=== PATIENT | female | born 1955 | race Caucasian/White ===

== ENCOUNTER 2025-10-07 09:42 | Outpatient (AMB) | payer MEDICARE, SELFPAY ==
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
[2025-10-07 10:04] VITALS: BP 155/74; PULSE 75; RESP 16; TEMP 36.6; O2SAT 99; BMI 23.3
== END 2025-10-07 10:42 | disposition home or self-care (01) ==
PROVIDERS: PCP Student in an Organized Health Care Education/Training Program; Visit Provider Student in an Organized Health Care Education/Training Program
DX: E11.9 Type 2 diabetes mellitus without complications (principal); J45.20 Mild intermittent asthma, uncomplicated; H54.8 Legal blindness, as defined in USA; R41.89 Other symptoms and signs involving cognitive functions and awareness; Z59.41 Food insecurity; Z59.869 Financial insecurity, unspecified; Z59.82 Transportation insecurity

== ENCOUNTER 2025-10-07 09:42 | Outpatient (REF) | payer MEDICARE, SELFPAY ==
[2025-10-07 13:17] LABS: Appearance Urine Clear; Glucose Urine UA >=1000 mg/dL (Negative); PH 5.5 (5.0-9.0); Specific Gravity - Urine 1.025 (1.005-1.025); UMIC TRIGGER UACC YES
[2025-10-07 13:18] LABS: MANUAL DIFF FLAG NO
[2025-10-07 13:36] LABS: Hematocrit 40.3 % (37.0-47.0); Hemoglobin 13.5 g/dl (12.0-16.0); Imm Gran Abs Auto 0.01 X10*3/uL (0.00-0.03); Imm Gran Pct Auto 0.1 % (0.0-0.4); Lymphocytes Absolute Auto 1.6 X10*3/uL (1.2-4.9); Mean Corpuscular HGB Conc 33.5 g/dl (31.0-35.0); Mean Corpuscular Hemoglobin 30.7 pg (27.0-33.0); Mean Corpuscular Volume 91.6 fL (80.0-98.0); NRBC Abs Auto 0.000 X10*3/uL (0.0-0.012); NRBC Pct Auto 0.0 /100WBC (0.0-0.2); Platelet Count 172 X10*3/uL (160-400); Red Blood Count 4.40 X10*6/uL (4.20-5.50); White Blood Count 7.2 X10*3/uL (4.8-10.8)
[2025-10-07 14:02] LABS: Microalbum/Creatinine Ratio Ur 29.6 ug/mg cr (<30)
[2025-10-07 18:41] LABS: Alanine Aminotransferase 50 U/L (0-31); Albumin Level 3.5 g/dL (3.5-5.0); Alkaline Phosphatase 176 U/L (39-117); Anion Gap 10 (12-20); Aspartate Amino Transferase 67 U/L (5-31); Blood Urea Nitrogen 22 mg/dL (9-16); Calcium 8.9 mg/dL (8.4-10.2); Carbon Dioxide 27 mmol/L (22-29); Chloride 104 mmol/L (96-108); Cholesterol 171 mg/dL (<200); Estimated Glomerular Filt Rate > 60; HDL Cholesterol 47 mg/dL (>40); Magnesium 1.8 mg/dL (1.6-2.6); Potassium 3.9 mmol/L (3.3-5.1); Sodium 137 mmol/L (135-145); Total Protein 7.8 g/dL (6.5-8.0); Triglycerides 59 mg/dL (<150)
[2025-10-07 18:48] LABS: Folate 11.8 ng/mL (> or = 4.0); Vitamin B12 604 pg/mL (200-900)
[2025-10-09 03:51] LABS: Syphilis Screen Nonreactive (Nonreactive)
[2025-10-09 04:35] LABS: HBS Num1 0.00 mIU/mL (0-7.99); HBsAGNum1 0.44 S/CO (0.00-0.99); HIV Num 1 0.06 S/CO (0.00-0.99); Hepatitis B Surface Antigen Negative (Negative); ~HepC Num1 0.10 S/CO (0.00-0.79); ~Hepatitis B Surface Antibody NONREACTIVE (Nonreactive); ~Hepatitis C Antibody Nonreactive (Nonreactive)
[2025-10-13 14:23] LABS: VITAMIN D (1,25 OH) D3 20 pg/mL; Vit D (1,25-Dihydroxy) Total 20 pg/mL (18-72); Vitamin D (1,25 OH) D2 <8 pg/mL
== END 2025-10-07 09:43 | disposition home or self-care (01) ==
LOC: HO.HKASLDS 09:42
PROVIDERS: PCP Student in an Organized Health Care Education/Training Program; Visit Provider Student in an Organized Health Care Education/Training Program
DX: E11.9 Type 2 diabetes mellitus without complications (principal); J45.909 Unspecified asthma, uncomplicated; H54.8 Legal blindness, as defined in USA; J45.20 Mild intermittent asthma, uncomplicated; R41.89 Other symptoms and signs involving cognitive functions and awareness; Z59.41 Food insecurity; Z59.869 Financial insecurity, unspecified; Z59.82 Transportation insecurity
CPT/HCPCS: 36415; 80053; 80061; 81001; 82043; 82570; 82607; 82652; 82746; 83036; 83735; 84443; 85025; 86706; 86780; 86803; 87340; 87389; 96127; 99202

== ENCOUNTER 2025-11-02 14:58 | Outpatient (AMB) | payer MEDICARE, SELFPAY ==
--- NOTE | 2025-11-02 15:29 | MHC.PC.OV ---
Vital Signs 11/02/25 15:33 Height 5 ft 1.81 in Weight 142 lb BMI 26.1 BP 124/63 Blood Pressure Location Rt brachial Position Sitting Respiration 16 Pulse 74 Pulse Source Pulse Oximeter Temp 98.1 F Temp Source Oral Pulse Oximetry (%) 99 Oxygen Delivery Method Room Air Intake Visit Reasons: 2 wk lab review Intake Note: lab review Guest Service Manager Required: No Allergies acetaminophen (From Percocet) Allergy (Intermediate, Verified 11/02/25 15:32) Hives oxycodone (From Percocet) Allergy (Intermediate, Verified 11/02/25 15:32) Hives Tobacco use date assessed: 10/07/25 Fall risk assessment: 1 Fall in past year Last assessed Fall Risk: 11/02/25 Dental Screening Dental Screen Date: 10/07/25 HPI HPI Comments History of Present Illness Details History of Present Illness The patient is a 70 year old individual presenting for follow-up for chronic disease management, review of lab results, and obtaining specialist referrals. Type 2 diabetes mellitus: The patient has a history of type 2 diabetes and previously took metformin a long time ago but is not currently on any medication for it, as the patient had not seen a doctor recently. The patient's Hemoglobin A1c is 6.2, which is in the prediabetes range; however, the patient is considered a diabetic who is currently diet-controlled. Dyslipidemia: The patient has a history of dyslipidemia. Recent lab results show an LDL cholesterol level of 113. Visual Impairment: An inquiry was made by Ann-Marie regarding whether the patient had a clinical diagnosis of blindness. Past medical records obtained from a previous physician do not contain any information about legal blindness. An evaluation from [facility] [place] [facility] was previously mentioned. Forgetfulness: The patient is experiencing forgetfulness, prompting a request for a neurology evaluation. The patient's mother had dementia, and a family member mentioned a prior diagnosis of early Alzheimer's, though no formal testing documentation is available. Medications: - Statin medication for cholesterol Social History: - The patient requires a handicap placard. - The patient requires durable medical equipment, specifically a shower chair, for home safety. - A family member is involved in the patient's care and accompanied the patient to the visit. Family History: - Mother had a history of dementia. Diagnostic Results: - Complete Blood Count: White blood cells, red blood cells, hemoglobin, hematocrit, and platelets are normal. - Comprehensive Metabolic Panel: Sodium, potassium, and kidney function are normal. - Hemoglobin A1c: 6.2%. - Liver Function Tests: AST, ALT, and alkaline phosphatase are elevated. - Lipid Panel: LDL cholesterol is 113 mg/dL. - Vitamin B12: 604 pg/mL. - Vitamin D: 20 ng/mL. - Folate: Normal. - Thyroid function: Normal. - Urinalysis: Positive for microprotein. - Infectious Disease Panel: Negative for syphilis, HIV, Hepatitis B, and Hepatitis C. Past Medical History - Hypertension - Type 2 diabetes mellitus - Dyslipidemia - Anxiety - History of asthma - Chronic obstructive pulmonary disease (COPD) - Migraines - Possible early Alzheimer's disease Health Maintenance - Discussed influenza and pneumococcal vaccinations, which the patient declined. - Fill out paperwork for a handicap placard. - Place an order for a shower chair for home safety. FOR[facility] Medical History (Updated 11/05/25 @ 12:31 by Miguel Angel Bingham MD) Visual impairment Dyslipidemia Forgetfulness Dementia Elevated liver enzymes Cognitive decline Legally blind Asthma, mild intermittent Transportation insecurity Financial insecurity Food insecurity Screening for diabetic retinopathy Diabetes type 2 Family History Father High blood pressure Cancer Mother Alzheimer disease Dementia Social History (Updated 11/02/25 @ 15:32 by Derek Cerrato CMA) Housing: House Alcohol intake: never Patient Tobacco Use Status: Never used Tobacco e-Cigarette/Vaping Use: Never Used service: No Current occupational status: retired Cognitive needs: Yes Hearing needs: No Vision needs: Yes (rx glasses) Questionnaire Thrive Questionnaire Date Thrive assessed: 10/07/25 I am a: Parent/Caregiver What is your living situation today?: I have a steady place to live Within the past 12 months, did the food you bought not last and you didn't have the money to get more?: Often true Within the past 12 months, did you worry whether your food would run out before you got money to buy more?: Often true Do you have trouble paying for medicines?: No Do you have trouble getting transportation to medical appointments?: Yes Do you have trouble paying your heating and electricity bill?: Yes Do you have trouble taking care of your child, family member or friend?: No Are you currently unemployed and looking for a job?: Yes Are you interested in more education?: No Currently or been in a relationship where the following occur: I choose not to answer THRIVE Score: 4 Review of Systems Narrative Review of Systems - Neurological: Reports a history of migraines. - Reports forgetfulness. - Eyes: Reports significant visual impairment requiring evaluation. - Cardiovascular: Denies a history of hypertension issues. 10-point ROS reviewed and negative except as noted in HPI Physical exam (Primary Care) Vital Signs: Last Vital Signs Temp 98.1 F 11/02/25 15:33 Pulse 74 11/02/25 15:33 Resp 16 11/02/25 15:33 BP 124/63 11/02/25 15:33 Pulse Ox 99 11/02/25 15:33 Oxygen Delivery Method Room Air 11/02/25 15:33 BMI result Body Mass Index 26.1 Tobacco/Smoking Status: Tobacco use Status Tobacco use date assessed 10/07/25 11/02/25 15:30 Patient Tobacco Use Status Never used Tobacco 11/02/25 15:32 e-Cigarette/Vaping Use Never Used 11/02/25 15:35 Thrive Assessment: Date of Thrive Assessment Date Thrive assessed 10/07/25 11/02/25 15:30 Currently or been in a relationship where the following occur: I choose not to answer Narrative Physical Exam General: Well-appearing, in no acute distress. Vital signs: Within normal limits. HEENT: Normocephalic, atraumatic. PERRLA, EOMI. Conjunctiva clear, sclera anicteric. Oropharynx clear, mucous membranes moist. TMs intact bilaterally. Neck: Supple, no lymphadenopathy, no thyromegaly, no JVD or carotid bruits. Cardiovascular: RRR, normal S1/S2, no murmurs, rubs, or gallops. Peripheral pulses 2+ and symmetric. No edema. Respiratory: Lungs clear to auscultation bilaterally, no wheezes, rales, or rhonchi. Normal effort. Abdomen: Soft, non-tender, non-distended. Normoactive bowel sounds. No hepatosplenomegaly, no masses. MSK: Full range of motion, no joint swelling or deformity. Normal gait. Skin: Warm, dry, intact. No rashes, lesions, or pallor. Neuro: Alert and oriented x3. Cranial nerves II-XII intact. Strength 5/5 throughout. Sensation intact. Reflexes 2+ symmetric. Normal coordination and gait. Psych: Appropriate mood and affect. Normal judgment and insight. Coding Level of Care Code Est Pt Level 3 (66450) Diagnoses Diabetes type 2 E11.9 Dyslipidemia E78.5 Screening for diabetic retinopathy Z13.5 Forgetfulness R68.89 Dementia F03.90 Cognitive decline R41.89 Visual impairment H54.7 Assessment & Plan Assessment & Plan (1) Diabetes type 2: Code(s): E11.9 - Type 2 diabetes mellitus without complications Category: Medical (2) Dyslipidemia: Code(s): E78.5 - Hyperlipidemia, unspecified Category: Medical (3) Screening for diabetic retinopathy: Code(s): Z13.5 - Encounter for screening for eye and ear disorders Category: Medical (4) Forgetfulness: Code(s): R68.89 - Other general symptoms and signs Category: Medical (5) Dementia: Code(s): F03.90 - Unspecified dementia, unspecified severity, without behavioral disturbance, psychotic disturbance, mood disturbance, and anxiety Category: Medical (6) Cognitive decline: Code(s): R41.89 - Other symptoms and signs involving cognitive functions and awareness Category: Medical (7) Visual impairment: Code(s): H54.7 - Unspecified visual loss Category: Medical Plan Consent Patient was informed and verbally consented to the use of an ambient scribe for clinic note documentation during this visit. Plan 1. Type 2 Diabetes Mellitus - Initiate metformin 500 mg twice daily. - Prescribe vitamin B12 supplement to be taken nightly to prevent deficiency from metformin. - Refer to ophthalmology for an annual retinal exam and podiatry for a yearly foot exam. - Follow up in 3 months for repeat lab work. 2. Dyslipidemia - Initiate atorvastatin 20 mg once daily to lower LDL cholesterol, with a goal of <70 mg/dL. 3. Elevated Liver Enzymes - Order a liver ultrasound to evaluate for suspected fatty liver disease. 4. Vitamin D Deficiency - Prescribe vitamin D to be taken once a week to address low-normal levels. 5. Forgetfulness - Refer to neurology for evaluation of forgetfulness and to establish a baseline, given family history of dementia. 6. Visual Impairment - Refer to ophthalmology for evaluation, which may assist with the evaluation process for [facility] [place] [facility]. Discussion Notes I reviewed the patient's lab results, noting an A1c of 6.2, and explained that while this is in the prediabetes range, a diagnosis of diabetes remains. I recommended restarting medication and prescribed metformin 500 mg twice daily, along with a nightly vitamin B12 supplement to prevent deficiency. The patient's LDL cholesterol of 113 is above the goal of <70 for a person with diabetes, so I prescribed atorvastatin 20 mg daily to lower this level and reduce cardiovascular risk. I noted the elevated liver enzymes and explained it is likely due to fatty liver, for which I ordered an ultrasound for further evaluation. The vitamin D level was low-normal, so I prescribed weekly supplementation. We discussed necessary referrals for diabetes care, including an annual eye exam with an muffler installer and a foot exam with a maternity floor supervisor. A referral to neurology was also placed to evaluate the patient's forgetfulness, which is a concern given a family history of dementia. I will complete the form for a handicap placard, and my medical accounting clerk will assist with ordering a shower chair. The patient declined the flu and pneumonia vaccinations at this visit. I advised the patient to follow up in three months to review labs and assess the response to the new medications. Patient Instructions - Take metformin 500 mg two times a day, once in the morning and once at night, for diabetes. - Take atorvastatin 20 mg once a day for your cholesterol. - Take one vitamin B12 pill every night. - Take one vitamin D pill once a week. - You will receive a call to schedule an ultrasound of your liver. - You will receive calls to schedule appointments with an eye doctor (muffler installer), a foot doctor (maternity floor supervisor), and a nerve doctor (neurologist). - If you do not hear from the specialists within one to two weeks, please call their offices. - Please update your phone number at the service desk technician when you check out. - My medical accounting clerk will help you get a shower chair. - I will complete the paperwork for a handicap placard. - Please schedule a follow-up appointment in three months. Medical Decision Making The patient is a 70-year-old individual with a history of type 2 diabetes and dyslipidemia, among other chronic conditions, presenting for management. Lab review showed an A1c of 6.2; although this is in the prediabetic range, the patient carries a diagnosis of diabetes and has been unmedicated. To improve glycemic control and prevent complications, I am reinitiating metformin 500 mg twice daily, a dose selected to minimize side effects reported in the past. Vitamin B12 was concurrently prescribed to mitigate the risk of metformin-induced deficiency. The lipid panel revealed an LDL of 113 mg/dL, which is above the recommended goal of <70 mg/dL for a patient with diabetes. To address this elevated cardiovascular risk, I have initiated atorvastatin 20 mg daily. The patient's liver enzymes were elevated, raising suspicion for non-alcoholic fatty liver disease (NAFLD) secondary to dyslipidemia. An abdominal ultrasound has been ordered to evaluate the liver parenchyma, and it is anticipated that statin therapy may also improve liver function. The patient's vitamin D was at the low end of the normal range, so weekly supplementation was started to prevent deficiency. Given the diabetes diagnosis, I have placed referrals for essential annual screenings with ophthalmology for a retinal exam and podiatry for a foot exam. Additionally, a neurology referral was made to evaluate reported forgetfulness, a significant concern given the family history of dementia. The patient declined recommended immunizations at this visit. The plan is for a 3-month follow-up to assess medication tolerance and efficacy via repeat lab work. Total Time Statement 20 min Total time spent caring for the patient today includes pre-visit chart review, documentation, review of laboratory and diagnostic imaging results, medication reconciliation, medically necessary evaluation, counseling on diagnoses, care coordination, ordering appropriate tests and medications, review of tests performed by other providers, reporting test results to the patient, and communication with other healthcare providers. Orders: Orders US abdomen limited 11/02/25 R74.8 - Abnormal levels of other serum enzymes Referrals Ophthalmology Referral E11.9 - Type 2 diabetes mellitus without complications Podiatry Referral E11.9 - Type 2 diabetes mellitus without complications Neurology Referral F03.90 - Unspecified dementia, unspecified severity, without behavioral disturbance, psychotic disturbance, mood disturbance, and anxiety, R68.89 - Other general symptoms and signs Medications: New mecobalamin (vitamin B12) place tablet under tongue and allow to dissolve for at least30 secs before swallowing 1,000 mcg sublingual BEDTIME 90 tabs 0RF ergocalciferol (vitamin D2) 1,250 mcg PO QWEEK 12 caps 0RF metformin 500 mg PO BID 180 tabs 0RF atorvastatin (Lipitor) 20 mg PO BEDTIME 90 tabs 0RF
[2025-11-02 15:33] VITALS: BP 124/63; PULSE 74; RESP 16; TEMP 36.7; O2SAT 99; BMI 26.1
== END 2025-11-02 15:59 | disposition home or self-care (01) ==
LOC: HO.HMCFMS 14:59
PROVIDERS: PCP Student in an Organized Health Care Education/Training Program; Visit Provider Student in an Organized Health Care Education/Training Program
DX: E11.9 Type 2 diabetes mellitus without complications (principal); E78.5 Hyperlipidemia, unspecified; Z13.5 Encounter for screening for eye and ear disorders; R68.89 Other general symptoms and signs; F03.90 Unspecified dementia, unspecified severity, without behavioral disturbance, psychotic disturbance, mood disturbance, and anxiety; R41.89 Other symptoms and signs involving cognitive functions and awareness; H54.7 Unspecified visual loss

== ENCOUNTER → 2025-11-02 14:58 | Outpatient (BNVA) | payer MEDICARE, SELFPAY | PROVIDERS: PCP Student in an Organized Health Care Education/Training Program; Visit Provider Student in an Organized Health Care Education/Training Program | DX: Z71.2 Person consulting for explanation of examination or test findings (principal); E11.9 Type 2 diabetes mellitus without complications; E78.5 Hyperlipidemia, unspecified; R68.89 Other general symptoms and signs; F03.90 Unspecified dementia, unspecified severity, without behavioral disturbance, psychotic disturbance, mood disturbance, and anxiety; R41.89 Other symptoms and signs involving cognitive functions and awareness; H54.7 Unspecified visual loss | CPT/HCPCS: 99212 ==